=== PATIENT | female | born 1995 | race Caucasian/White ===

== ENCOUNTER 2022-04-11 10:09 | Emergency (ER) | payer OTHER ==
[~2022-04-11] VITALS: Ht 162.6 cm; Wt 62.8 kg
[2022-04-11] MEDS ORDERED: IVER1TAB PO ×3 (12:48→13:18)
[2022-04-11 13:05] VITALS: BP 103/60
== END 2022-04-11 13:35 | disposition home or self-care (01) ==
LOC: M ED 10:09
DX: B86 Scabies (principal)